=== PATIENT | female | born 1990 | race Caucasian/White ===

== ENCOUNTER 2017-01-19 15:46 | Emergency (ER) | payer MEDICAID, OTHER ==
[~2017-01-19] VITALS: Ht 157.5 cm; Wt 57.5 kg
[~2017-01-19 15:46] MED LIST: CALC500T PO; FERR-55 PO; PNV1TABL43 PO
[2017-01-19 15:58] VITALS: Ht 157.5 cm; Wt 57.5 kg
[2017-01-19] MEDS ORDERED: IBUP400T22 PO (16:23)
[2017-01-19] MEDS ORDERED: AMO500 PO (16:23)
--- NOTE | 2017-01-19 17:25 | ERD ---
ER Documentation Chief Complaint Date/Time DATE: 01/19/17 TIME: 17:22 Chief Complaint Complains of ST x 3 days HPI 26-year-old female patient presents the ED complaining of sore throat that started 3 days ago. Patient states that she feels like her lymph nodes are swollen. States that the pain extends to her right ear region. Reports that she is slightly fatigued. States that she tried taking one amoxicillin that she got from a friend and she felt like it got better. Denies any chest pain, shortness of breath, abdominal pain, nausea, vomiting, cough, fever, chills, headache, weakness. ROS All systems reviewed and are negative except as per history of present illness. Medications Home Meds Active Scripts Ibuprofen* (Motrin*) 400 Mg Tab, 400 MG PO Q6, #30 TAB Prov:IZA YA PA-C 01/19/17 Amoxicillin* (Amoxicillin*) 500 Mg Cap, 500 MG PO BID for 10 Days, CAP Prov:IZA YA PA-C 01/19/17 Reported Medications Calcium Carbonate (Calcium 500) 1 Tab Tablet, 1 TAB PO DAILY 11/13/13 Ferrous Sulfate* (Ferrous Sulfate*) 325 Mg Tablet, 325 MG PO BID 11/13/13 Vit/Fe Fumarate/Fa* ( Vitamin Tablet*) 1 Tab Tablet, 1 TAB PO DAILY 07/14/13 Allergies Allergies: Coded Allergies: No Known Allergies (Verified Allergy, Unknown, 11/24/13) PMhx/Soc History of Surgery: Yes (csection) Anesthesia Reaction: No Hx Neurological Disorder: No Hx Respiratory Disorders: No Hx Cardiac Disorders: Yes (LONG Q&T SYNDROME) Hx Psychiatric Problems: No Hx Miscellaneous Medical Probl: No Hx Alcohol Use: No Hx Substance Use: No Hx Tobacco Use: No Smoking Status: Never smoker Physical Exam Vitals Vital Signs Date Time Temp Pulse Resp B/P Pulse Ox O2 Delivery O2 Flow Rate FiO2 01/19/17 15:58 98.0 80 20 151/91 96 Physical Exam Const: [id number]-egk-[id number], well-nourished. In no acute distress. Head: Atraumatic, normocephalic Eyes: Normal Conjunctiva without injection. No purulent discharge. PERRL. EOMI ENT: Normal external ear. Ear canal without erythema. Tympanic membrane pearly velasquez without effusion or bulging. Nasal canal clear with normal turbinates. Moist oropharynx with bilateral tonsillar exudates. Non-erythematous pharynx. Uvula midline. No drooling. No trismus. Neck: Full range of motion. No meningismus. No cervical lymphadenopathy. Resp: Clear to auscultation bilaterally. No wheezing, rhonchi, rales, or crackles. No accessory muscle use. No retractions. Cardio: Regular rate and rhythm. No murmurs, rubs or gallops. Skin: No petechiae or rashes Ext: No cyanosis, or edema. Neur: Awake and alert. Psych: Normal Mood and Affect Procedures/MDM This is a 26-year-old female patient presents to the ED complaining of sore throat that started 3 days ago. Patient is afebrile and nontoxic-appearing. Patient has normal vital signs. Patient's physical exam is consistent with presumed strep pharyngitis. Based on Cent[employer]'s Criteria, patient has tonsils noted with bilateral, no cough. Patient is appropriate for outpatient antibiotics. Patient's physical exam include lungs which were clear to auscultation and a normal pulse oximetry. Bilateral ears pearly huff. No tenderness to palpation of tragus or mastoid. Low suspicion for mastoiditis, otitis externa, otitis media. Patient is speaking in full sentences. There is a low suspicion for pneumonia, epiglottitis, croup, sinusitis, peritonsillar abscess, hands foot mouth disease, scarlet fever, Akash's angina, dental abscess, retropharyngeal abscess, meningitis, sepsis, acute abdomen or other emergent conditions. Discharge medications: Ibuprofen, amoxicillin Follow up with primary care physician in 1-2 days. Instructed patient to return to the ED sooner for any worsening symptoms. Patient's questions were answered. Patient understood and agreed with discharge plan. Patient discharged stable. Departure Diagnosis: Primary Impression: Tonsillitis Additional Impression: Painful swallowing Condition: Stable Patient Instructions: Pharyngitis, Strep (Presumed) Referrals: [facility] YOU HAVE RECEIVED A MEDICAL SCREENING EXAM AND THE RESULTS INDICATE THAT YOU DO NOT HAVE A CONDITION THAT REQUIRES URGENT TREATMENT IN THE EMERGENCY DEPARTMENT. FURTHER EVALUATION AND TREATMENT OF YOUR CONDITION CAN WAIT UNTIL YOU ARE SEEN IN YOUR DOCTORS OFFICE WITHIN THE NEXT 1-2 DAYS. IT IS YOUR RESPONSIBILITY TO MAKE AN APPOINTMENT FOR FOLOW-UP CARE. IF YOU HAVE A PRIMARY DOCTOR --you should call your primary doctor and schedule an appointment IF YOU DO NOT HAVE A PRIMARY DOCTOR YOU CAN CALL OUR PHYSICIAN REFERRAL HOTLINE AT IF YOU CAN NOT AFFORD TO SEE A PHYSICIAN YOU CAN CHOSE FROM THE FOLLOWING [facility] [address] [facility] [place] [address] [facility] [address] [facility] [address] [facility] [address] [facility]. [facility] [address] [facility]. [facility] YOU HAVE RECEIVED A MEDICAL SCREENING EXAM AND THE RESULTS INDICATE THAT YOU DO NOT HAVE A CONDITION THAT REQUIRES URGENT TREATMENT IN THE EMERGENCY DEPARTMENT. FURTHER EVALUATION AND TREATMENT OF YOUR CONDITION CAN WAIT UNTIL YOU ARE SEEN IN YOUR DOCTORS OFFICE WITHIN THE NEXT 1-2 DAYS. IT IS YOUR RESPONSIBILITY TO MAKE AN APPOINTMENT FOR FOLOW-UP CARE. IF YOU HAVE A PRIMARY DOCTOR --you should call your primary doctor and schedule and appointment IF YOU DO NOT HAVE A PRIMARY DOCTOR YOU CAN CALL OUR PHYSICIAN REFERRAL HOTLINE AT . IF YOU CAN NOT AFFORD TO SEE A PHYSICIAN YOU CAN CHOSE FROM THE FOLLOWING [facility]: [facility] [address] [place] [address] [facility] [address] [place] [address] [facility] [address] [place] [address] [facility] URGENT CARE/SPECIALTIES Additional Instructions: FOLLOW UP WITH YOUR PRIMARY CARE PHYSICIAN in 2 days for a further evaluation and treatment. Return to this facility if you are not improving as expected - fever, difficulty swallowing, chills, nausea, vomiting. IZA YA PA-C Jan 19, 2017 17:25
== END 2017-01-19 16:50 | disposition home or self-care (01) ==
LOC: FTE 15:46
DX: J03.90 Acute tonsillitis, unspecified (principal); R13.10 Dysphagia, unspecified
CPT/HCPCS: 99283

== ENCOUNTER 2017-02-10 12:24 | Emergency (ER) | payer OTHER ==
[~2017-02-10] VITALS: Wt 56.5 kg
[~2017-02-10 12:24] MED LIST changes: +AMO500 PO; +IBUP400T22 PO
[2017-02-10] MEDS ORDERED: NAPR-688 PO (13:04)
[2017-02-10] MEDS ORDERED: HYDR-906 PO (13:04)
[2017-02-10] MEDS ORDERED: AMOX1TAB10 PO (13:04)
--- NOTE | 2017-02-10 13:26 | ERD ---
ER Documentation Chief Complaint Date/Time DATE: 02/10/17 TIME: 13:11 Chief Complaint PAIN W/ SWALLOWING [id number] "TONSILLS ARE SWOLLEN AND PAINFUL" HPI This is a 18-year-old female presents with painful swallowing for a month. She was previously diagnosed with strep throat weeks ago and put on a course of amoxicillin. She stated that he got better but now it is getting worse again and feeling the same. She felt very warm last night without checking the temperature. She has a tender bump on her lower neck. She has no cough. She is otherwise healthy ROS All systems reviewed and are negative except as per history of present illness. Medications Home Meds Active Scripts Hydrocodone/Acetaminophen ([place] 5-325 Tablet) 1 Each Tablet, 1 EACH PO Q6, #14 TAB Prov:ONDINA SKELTON DO 02/10/17 Naproxen* (Naproxen*) 500 Mg Tablet, 500 MG PO BID Y for PAIN, #14 TAB Prov:ONDINA SKELTON DO 02/10/17 Amoxicillin/Potassium Clav (Amox-Clav 875-125 mg Tablet) 875-125 mg Tab, 1 TAB PO BID, #20 TAB Prov:ONDINA SKELTON DO 02/10/17 Ibuprofen* (Motrin*) 400 Mg Tab, 400 MG PO Q6, #30 TAB Prov:IZA YA PA-C 01/19/17 Amoxicillin* (Amoxicillin*) 500 Mg Cap, 500 MG PO BID for 10 Days, CAP Prov:IZA YA PA-C 01/19/17 Reported Medications Calcium Carbonate (Calcium 500) 1 Tab Tablet, 1 TAB PO DAILY 11/13/13 Ferrous Sulfate* (Ferrous Sulfate*) 325 Mg Tablet, 325 MG PO BID 11/13/13 Vit/Fe Fumarate/Fa* ( Vitamin Tablet*) 1 Tab Tablet, 1 TAB PO DAILY 07/14/13 Allergies Allergies: Coded Allergies: No Known Allergies (Verified Allergy, Unknown, 11/24/13) PMhx/Soc History of Surgery: Yes (csection) Anesthesia Reaction: No Hx Neurological Disorder: No Hx Respiratory Disorders: No Hx Cardiac Disorders: Yes (LONG Q&T SYNDROME) Hx Psychiatric Problems: No Hx Miscellaneous Medical Probl: No Hx Alcohol Use: No Hx Substance Use: No Hx Tobacco Use: No Physical Exam Vitals Vital Signs Date Time Temp Pulse Resp B/P Pulse Ox O2 Delivery O2 Flow Rate FiO2 02/10/17 12:28 98.1 82 20 106/61 98 Physical Exam Const: [] No distress Head: Atraumatic Eyes: Normal Conjunctiva ENT: Normal External Ears, Nose and Mouth. Mild bilateral tonsillar swelling with erythema and right tonsillar exudate. Neck: Full range of motion. Tender 1.5 cm left anterior cervical lymph node Skin: No petechiae or rashes Procedures/MDM Patient with recurrence of apparent strep pharyngitis. Patient was also almost resolved with amoxicillin but it returned leaving suspicion that the bacteria was not completely eradicated some of it may be resistant to amoxicillin. I am going to discharge her with Augmentin as well as naproxen for pain and a few [place] as for any severe pain that she might feel. She is swallowing own secretions and well-appearing with no dehydration in the ER. Primary care follow-up in 2 3 days and return precautions. Departure Diagnosis: Primary Impression: Strep throat Condition: Stable Patient Instructions: Pharyngitis, Strep (Presumed) Referrals: [facility] YOU HAVE RECEIVED A MEDICAL SCREENING EXAM AND THE RESULTS INDICATE THAT YOU DO NOT HAVE A CONDITION THAT REQUIRES URGENT TREATMENT IN THE EMERGENCY DEPARTMENT. FURTHER EVALUATION AND TREATMENT OF YOUR CONDITION CAN WAIT UNTIL YOU ARE SEEN IN YOUR DOCTORS OFFICE WITHIN THE NEXT 1-2 DAYS. IT IS YOUR RESPONSIBILITY TO MAKE AN APPOINTMENT FOR FOLOW-UP CARE. IF YOU HAVE A PRIMARY DOCTOR --you should call your primary doctor and schedule an appointment IF YOU DO NOT HAVE A PRIMARY DOCTOR YOU CAN CALL OUR PHYSICIAN REFERRAL HOTLINE AT IF YOU CAN NOT AFFORD TO SEE A PHYSICIAN YOU CAN CHOSE FROM THE FOLLOWING [facility] [address] [facility]. [facility] [address] [facility]. [facility] [address] [facility]. [facility] [address] [facility]. [facility] [address] [facility]. [facility]. [address] [place] Additional Instructions: Call your primary care doctor TOMORROW for an appointment during the next 2-3 days.See the doctor sooner or return here if your condition worsens before your appointment time. NODINA SKELTON DO Feb 10, 2017 13:21
== END 2017-02-10 13:25 | disposition home or self-care (01) ==
LOC: FTE 12:24
DX: J02.0 Streptococcal pharyngitis (principal)
CPT/HCPCS: 99284

== ENCOUNTER 2018-06-20 11:18 | Emergency (ER) | END 2018-06-20 12:34 | disposition home or self-care (01) ==